=== PATIENT | male | born 1970 | race Caucasian/White ===

== ENCOUNTER 2019-12-08 10:51 | Emergency (ER) | payer OTHER ==
[~2019-12-08] VITALS: Ht 195.6 cm; Wt 111.1 kg
[2019-12-08 13:36] VITALS: BP 118/77
--- NOTE | 2019-12-09 09:10 | EKG ---
[place] [address] ELECTROCARDIOGRAM REPORT Name: JAZZMINE TALAVERA Room: [facility]#: [id number] Admission: 12/08/19 Attend Phys: Discharge: 12/08/19 Date of : 72 Date of Service: 12/08/19 1104 Report #: [id number] THIS REPORT FOR: //name// [facility] ED Test Date: 2019-12-08 Test Time: 11:04:11 Pat Name: JAZZMINE TALAVERA Department: Room: Gender: Member Service Representative: : 1970 Requested By: Jose Manuel Ibrahim Order Number: [id number] Parveen MD: Frederick Crowell Measurements Intervals [place] Rate: 74 P: 54 MO: 116 QRS: -34 QRSD: 105 T: 67 QT: 384 QTc: 426 Interpretive Statements Sinus rhythm Borderline short MO interval Probable left atrial enlargement Left axis deviation RSR' in V1 or V2, probably normal variant Baseline wander in lead(s) V1,V2,V3,V4 No previous ECG available for comparison Electronically Signed On 12-09-2019 9:09:40 CDT by Frederick Crowell [email or web address] <ELECTRONICALLY SIGNED> By: Frederick Crowell MD, [facility] 12/09/19 0909 1104 1104 Frederick Crowell MD, [facility] /EPI
== END 2019-12-08 13:37 | disposition home or self-care (01) ==
LOC: M.ERS 10:51
DX: B34.9 Viral infection, unspecified (principal); Z20.828 Contact with and (suspected) exposure to other viral communicable diseases; F17.210 Nicotine dependence, cigarettes, uncomplicated

== ENCOUNTER 2019-12-17 19:59 | Emergency (ER) | payer OTHER ==
[~2019-12-17] VITALS: Ht 195.6 cm; Wt 111.1 kg
[2019-12-17] MEDS ORDERED: ACTICIN 5% CREA60 G1 TOP (20:41)
[2019-12-17 20:58] VITALS: BP 110/69
== END 2019-12-17 20:59 | disposition home or self-care (01) ==
LOC: M.ERS 19:59
DX: L29.9 Pruritus, unspecified (principal); L53.9 Erythematous condition, unspecified; F17.210 Nicotine dependence, cigarettes, uncomplicated